=== PATIENT | female | born 1990 ===

== ENCOUNTER 2018-04-09 09:51 | Emergency (ER) | payer OTHER ==
[2018-04-09 10:01] VITALS: O2SAT 98
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
[2018-04-09 11:12] LABS: BARBITURATES, UR NEGATIVE (NEGATIVE); BENZODIAZEPINES, UR NEGATIVE (NEGATIVE); OPIATES, UR NEGATIVE (NEGATIVE); PHENCYCLIDINE, UR NEGATIVE (NEGATIVE)
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
[2018-04-09 11:45] VITALS: BP 136/73; PULSE 99; RESP 16; TEMP 98.3
== END 2018-04-09 11:39 | disposition home or self-care (01) ==
LOC: H.ER 09:51
DX: S09.90XA Unspecified injury of head, initial encounter (principal); M25.562 Pain in left knee; M25.522 Pain in left elbow; V43.62XA Car passenger injured in collision with other type car in traffic accident, initial encounter; Y92.410 Unspecified street and highway as the place of occurrence of the external cause
CPT/HCPCS: 70450; 72125; 73080; 73562; 81025; 99285; G0480